=== PATIENT | male | born 1945 | race Caucasian/White ===

== ENCOUNTER 2019-09-01 21:34 | Inpatient (IN) | payer MEDICARE, BC ==
[~2019-09-01] VITALS: Ht 180.3 cm; Wt 168.0 kg
[2019-09-01 21:37] VITALS: BP 117/77
[2019-09-01 22:03] LABS: ABSOLUTE BASOPHILS 0.1 thou/uL (0.0-0.2); ABSOLUTE EOSINOPHILS 0.2 thou/uL (0.0-0.7); ABSOLUTE LYMPHOCYTES 1.5 thou/uL (0.8-5.3); ABSOLUTE MONOCYTES 0.7 thou/uL (0.0-1.2); ABSOLUTE NEUTROPHILS 9.5 thou/uL (1.6-8.1); BASOPHILS 0.5 %; EOSINOPHILS 1.6 %; HEMATOCRIT 49.6 % (42.0-52.0); HEMOGLOBIN 16.4 gm/dL (14.0-18.0); LYMPHOCYTES 12.3 %; MCH 28.4 pg (26.0-34.0); MCV 85.9 fL (80.0-100.0); MONOCYTES 5.9 %; MPV 8.5 fl. (7.2-11.1); NUCLEATED RBCS 0 /100WBC; PLATELET COUNT* 169 thou/uL (150-400); POLYS 79.7 %; RBC 5.77 mil/uL (4.50-6.00); RDW-CV 16.3 % (10.5-14.5); WBC 11.9 thou/uL (4.0-11.0)
[2019-09-01 22:19] LABS: CALCIUM 8.7 mg/dL (8.5-10.1); CREATININE 1.2 mg/dL (0.6-1.3); POTASSIUM 4.2 mmol/L (3.5-5.1)
[2019-09-01 22:23] LABS: ALBUMIN 3.7 g/dL (3.4-5.0); TOTAL BILIRUBIN 0.4 mg/dL (<0.1-1.0); TOTAL PROTEIN 7.3 g/dL (6.4-8.2)
--- NOTE | 2019-09-02 02:02 | NUR ---
REPORT GIVEN TO ALLEN REYES. PT BEING ADMITTED TO ROOM 222.
[2019-09-02 02:04] VITALS: BP 131/68
[2019-09-02] MEDS ORDERED: OXYCODONE HCL5 MG PO (03:47)
--- NOTE | 2019-09-02 05:01 | NUR ---
RECIEVED PT FROM ER AT 0215H, ON RA AND TOLERATED. PT STILL HAVE SOME DIZZINESS. FALL PRECAUTON INITIATED AND INSTRUCTED TO CALL US FIRST IF HE WANTS TO GET OUT OF THE BED. PT HAVE CHORIC BACK PAIN AND HE TAKE OXYCODONE Q4H. INFORM HOSPITALIST WITH NO ORDER. PT IS SLEEPING NOW. NO CHEST PAIN AND NO CHANGES IN THE HEART MONITOR. CONTINUE MONITORING AND TOWARD GOALS.
[2019-09-02 07:20] LABS: BE -12.4 mmol/L (-2 to +3); PCO2 25.1 mmHg (35.0-45.0)
[2019-09-02 07:21] LABS: PO2 249.2 mmHg (75.0-100.0); pH 7.293 (7.340-7.450)
--- NOTE | 2019-09-02 07:26 | NUR ---
AT 0655H, PT BED ALARMED AND SEEN PT LYING ON THE SIDE OF THE BED AND LOOKS HE WANTED TO STAND UP. HE WAS DYSPNIC AND DIAPHORETIC AND NO CHEST PAIN ACCORDING TO HIM. HELP HIM BACK TO BED THEN RAPID RESPONSE INITIATED. O2 SAT WAS ARROUND 80'S, PUT HER ON NC THEN CHANGE TO NON REBREATHER MASK AND BLOOD SUGAR WAS 145 AND BP 89/59. TALK TO DR. HUTSON AND WITH ORDER OF ABG,BMP AND PORTABLE XRAY. BP WAS IMPROVING AND PUT ON BIPAP. LATEST O2 SAT 100%. INFORM DR. HUTSON AND DR. MUELLER REGARDING PT'S ABG RESULT. EKG ALSO DONE.
[2019-09-02 07:40] LABS: CALCIUM 8.7 mg/dL (8.5-10.1); CREATININE 1.4 mg/dL (0.6-1.3); POTASSIUM 3.9 mmol/L (3.5-5.1)
--- NOTE | 2019-09-02 09:30 | NUR ---
ASSUMED PT CARE AT APPROX 0735 D/T RAPID RESPONSE IN EFFECT. PT WAS PLACED ON BIPAP AND ALL VSS, STATES "FEELING MUCH BETTER". NIGHT NURSE RECVD ORDER FOR ONE TIME DOSE OF SODIUM BICARB AND TRANSFER TO ICU. MEDICATION GIVEN AND TRANSFER TO ICU COMPLETED.
--- NOTE | 2019-09-02 14:39 | NUR ---
PATIENT REMAINS IN RM 6 AWAITING MTN. ASYSTOLE AT 0931. FAMILY AWARE OF SITUATION.
--- NOTE | 2019-09-04 09:09 | EKG ---
[place] [address] ELECTROCARDIOGRAM REPORT Name: NING RALPH Room: [address] IN M.R.#: [id number] Admission: 09/02/19 Attend Phys: Vern Manjarrez Discharge: 09/02/19 Date of : 45 Date of Service: 09/01/192156 Report #: [id number] THIS REPORT FOR: //name// [facility] ED Test Date: 2019-09-01 Test Time: 21:57:14 Pat Name: NING RALPH Department: Room: [facility] Gender: M Monitoring Analyst: IGOR : 1945 Requested By: Keisha Hendrix Order Number: [id number] MD: Oral Reese Measurements Intervals [place] Rate: 101 P: 70 AR: 155 QRS: 29 QRSD: 101 T: 43 QT: 342 QTc: 444 Interpretive Statements Sinus tachycardia Low voltage, precordial leads No previous ECG available for comparison Electronically Signed On 09-04-2019 9:08:06 CDT by Oral Reese [email or web address] <ELECTRONICALLY SIGNED> By: Oral Reese MD, FAC 09/04/19 0908 56 Oral Reese MD, [facility] /EPI
--- NOTE | 2019-09-04 11:42 | EKG ---
[place] [address] ELECTROCARDIOGRAM REPORT Name: NING RALPH Room: [address] IN M.R.#: [id number] Admission: 09/02/19 Attend Phys: Vern Manjarrez Discharge: 09/02/19 Date of : 45 Date of Service: 09/02/19 0703 Report #: [id number] THIS REPORT FOR: //name// [facility] Test Date: 2019-09-02 Test Time: 07:03:07 Pat Name: NING RALPH Department: Room: [facility] Gender: M Welding Machine Operator Resistance: : 1945 Requested By: Kim Fisher Order Number: [id number] Reading MD: Oral Reese Measurements Intervals [place] Rate: 120 P: 76 MT: 153 QRS: 97 QRSD: 97 T: 3 QT: 293 QTc: 414 Interpretive Statements Sinus tachycardia Inferior infarct, old Lateral leads are also involved Baseline wander in lead(s) V5 Compared to ECG 09/01/2019 21:57:14 rate has slowed Electronically Signed On 09-04-2019 11:40:41 CDT by Oral Reese [email or web address] <ELECTRONICALLY SIGNED> By: Oral Reese MD, [facility] 09/04/19 [id number] [id number] Oral Reese MD, [facility] /EPI
== END 2019-09-02 09:21 | DRG 175 ==
LOC: M.ERS 21:34 → M.TBA-ER 09-02 00:32 → M.ICU 09-02 00:32 → M.2W 09-02 02:02 → M.ICU 09-02 08:11
PROVIDERS: Personal Emergency Response Attendant; ADMIT Internal Medicine
PROC: 5A09357 Assistance with Respiratory Ventilation, Less than 24 Consecutive Hours, Continuous Positive Airway Pressure (ICD-10-PCS; principal; 2019-09-02)
DX: I26.99 Other pulmonary embolism without acute cor pulmonale (principal); J96.01 Acute respiratory failure with hypoxia; E87.2 Acidosis; S00.83XA Contusion of other part of head, initial encounter; S80.219A Abrasion, unspecified knee, initial encounter; E11.9 Type 2 diabetes mellitus without complications; M25.562 Pain in left knee; M25.561 Pain in right knee; E78.00 Pure hypercholesterolemia, unspecified; W18.39XA Other fall on same level, initial encounter; Y93.89 Activity, other specified; Y92.89 Other specified places as the place of occurrence of the external cause; Y99.8 Other external cause status; Z79.899 Other long term (current) drug therapy